=== PATIENT | female | born 1970 | race Caucasian/White ===

== ENCOUNTER 2017-10-28 16:46 | Emergency (ER) | payer BC, OTHER ==
[~2017-10-28] VITALS: Ht 160 cm; Wt 95.3 kg
[2017-10-28 17:33] VITALS: BP 223/113
== END 2017-10-28 17:45 | disposition left against medical advice (07) ==
LOC: EDUNIT# 16:46 → ER 16:48
DX: R10.9 Unspecified abdominal pain (principal); R11.10 Vomiting, unspecified
CPT/HCPCS: 99281

== ENCOUNTER → 2017-11-14 | Outpatient (CLI) | payer BC ==
[2017-11-14 16:04] LABS: BILIRUBIN,URINE NEGATIVE (NEGATIVE); CLARITY,URINE SLIGHTLY CLOUDY; COLOR,URINE YELLOW; GLUCOSE, URINE (UA) NEGATIVE (NEGATIVE); KETONES,URINE NEGATIVE (NEGATIVE); LEUKOCYTE ESTERASE ,URINE 2+ (NEGATIVE); NITRITE,URINE NEGATIVE (NEGATIVE); PH,URINE 5 (5-9); PROTEIN,URINE NEGATIVE (NEGATIVE); UROBILINOGEN,URINE NORMAL (NORMAL)
[2017-11-14 16:18] LABS: BACTERIA,URINE NEGATIVE /HPF
== END ==
LOC: LAB 15:23
PROVIDERS: ATTEND Specialist
DX: N39.0 Urinary tract infection, site not specified (principal)
CPT/HCPCS: 81000; 87088

== ENCOUNTER → 2020-02-01 | Outpatient (CLI) | payer BC ==
--- NOTE | 2020-02-01 10:12 | Diagnostic Imaging Report ---
PROCEDURE: US Venous Lower Ext Kash. TECHNIQUE: Multiple real-time grayscale images were obtained over the lower extremities in various projections, bilaterally. Additional duplex Doppler and color Doppler images were also obtained. INDICATION: Leg pain and swelling COMPARISON: There are no prior studies available comparison. FINDINGS: There is generally good blood flow and compressibility at all levels of the deep venous system of each lower extremity. There is no sign of a deep venous thrombosis. IMPRESSION: There is no evidence for a deep venous thrombosis either lower extremity. Dictated by: Dictated on workstation # [id number]
== END ==
LOC: RAD 07:36
DX: M79.605 Pain in left leg (principal); M79.604 Pain in right leg
CPT/HCPCS: 93970